=== PATIENT | female | born 1955 | race Caucasian/White ===

== ENCOUNTER → 2017-12-20 | Day surgery (SDC) | payer OTHER ==
[2017-12-19 17:09] VITALS: BMI 19.5
[~2017-12-20] MED LIST: BACITRACIN 15 GM TUBE TOPICAL OINTMENT ONE; BACITRACIN 15 GM TUBE TOPICAL OINTMENT TP ONE; DEXAMETHASONE SOD PHOSPHATE 4 MG/1 ML VIAL ONE; GLYCOPYRROLATE 0.2 MG/1 ML VIAL ONE; KETOROLAC TROMETHAMINE 30 MG/1 ML VIAL ONE; LACTATED RINGERS SOLUTION 1,000 ML IV SCH; LIDOCAINE 1%/EPI 1:100000 (50 ML MULTI DOSE VIAL) INF ONE; MIDAZOLAM HCL 2 MG/2 ML SINGLE DOSE VIAL ONE; NEOSTIGMINE METHYLSULFATE 0.5 MG/ML - 10 ML MDV ONE; NITROGLYCERIN 2% OINTMENT - 1GM PACKET TD ONE; ONDANSETRON 4 MG/2 ML VIAL IVPB PRN; ONDANSETRON 4 MG/2 ML VIAL IVPUSH PRN; PROMETHAZINE HCL 25 MG/1 ML VIAL IVPUSH PRN; ROCURONIUM BROMIDE 50 MG/5 ML VIAL ONE; ceFAZolin SODIUM 1 GM VIAL IVPB ONE; ceFAZolin SODIUM 1 GM VIAL ONE; oxyCODONE HCL 5 MG TABLET PO PRN
--- NOTE | 2017-12-20 21:08 | OP ---
Operative Note - Note: Operative Date: 12/20/17 Pre-Operative Diagnosis: nasal defect Operation: flap nasal reconstruction Post-Operative Diagnosis: Same as Pre-op Surgeon: Jay Barnett Anesthesia: General
--- NOTE | 2017-12-20 22:02 | OP ---
DATE OF OPERATION: 12/20/2017 PROCEDURE: Excision of ulcer on nasal sidewall and ala, reconstruction of nasal sidewall and ala using tubed left nasolabial interpolated flap with dorsal nasal sidewall rotation flap reconstruction of defect. ATTENDING SURGEON: Jacob Blackwell MD SLOTS MANAGER: None. ANESTHESIA: General endotracheal anesthesia with 10 mL of 1% lidocaine with 1:100,000 epinephrine injected into the local tissues. PREOPERATIVE DIAGNOSIS: Defect from basal cell carcinoma on the nose. POSTOPERATIVE DIAGNOSIS: Defect from basal cell carcinoma on the nose. DESCRIPTION OF PROCEDURE: The patient received a gram of Ancef preoperatively. She is counseled on all risks, benefits, and alternatives to the procedure, understands, and agrees to proceed. The patient is awake and aware of the surgical plan and resulting scars. It is noted that the patient had a previous flap reconstruction on her nose, and the type of reconstruction is limited by her previous surgery, and any efforts will be made to cut along the existing scars and not across them preserving blood supply to all mobilized tissues. The patient is placed in supine position. After induction of general anesthesia, 10 mL of 1% lidocaine with 1:100,000 epinephrine is injected. She is marked, prepped, and draped in a standard sterile fashion. SCDs are placed. A time-out is called. The patient, procedure, site, and side are verified. At this point, the existing ulcer on the nose is entirely excised and saucerized. Hemostasis is achieved using Ventura tip cautery. A dorsal nasal rotation flap is then incised along longitudinally the existing scar from her previous bilobe flap incision. This is the scar that was from the donor site closure of the secondary flap. At this point, a back cut is made from the glabella to the medial canthus in order to rotate the flap into the defect. It is mobilized including nasalis muscle. Hemostasis is achieved. The flap is sutured in place. The tip of the flap is excised. A pivot point along the nasal ala in the supraalar groove is excised and closed with a 6-0 nylon suture. Once this flap is inset, its donor site is closed with a 5-0 Vicryl suture within the deep dermis. A 6-0 nylon suture is closed to close the donor site in both running and interrupted fashion, and this dorsal nasal flap is then inset with a running 6-0 nylon suture. The left-sided nasolabial flap is then addressed. This is the portion of the flap that will be required to reconstruct the inferior nasal ala and rim. Incisions are made along the premarked lines of the nasolabial flap. The flap is dissected in a subcutaneous plane superficial to the fascia musculature. This is done with direct vision and spreading very carefully until the flap is mobilized to a point where it can be transferred to the alar defect. The flap is then judicious thinned of fat. It is inset into the alar defect with a series of interrupted 6-0 nylon suture. The excess distal tip of the flap is excised, and this distal portion of the flap is likewise inset with interrupted 6-0 nylon suture. The donor site is then closed with a series of interrupted buried deep dermal 5-0 Vicryl suture after irrigation followed by a running 6-0 nylon suture. The exposed raw surface is dressed with bacitracin and Xeroform. The tips of the flaps are dressed with nitroglycerin paste and Xeroform. Then 4 x 4 gauze and Hypafix tape are applied. The patient is then awoken from anesthesia having tolerated procedure well. It should be noted that the tips of the flaps are pink and viable at the end of the procedure, and nitroglycerin paste is used as a precautionary measure only. JACOB BLACKWELL M.D. [id number]
[2017-12-20 22:53] VITALS: BP 98/46; PULSE 61; TEMP 98.7
== END | disposition home or self-care (01) ==
LOC: JASU-SURG 14:50
PROVIDERS: ATTEND Plastic Surgery
PROC: 0HX1XZZ Transfer Face Skin, External Approach (ICD-10-PCS; principal; 2017-12-20 16:30)
DX: C44.311 Basal cell carcinoma of skin of nose (principal)
CPT/HCPCS: 94760

== ENCOUNTER 2018-01-23 06:37 | Day surgery (SDC) | payer OTHER ==
[2018-01-16 11:03] VITALS: BMI 19.5
[2018-01-23] MEDS ORDERED: SEVOFLURANE 250 ML BTL ONE (07:07)
[2018-01-23] MEDS ORDERED: LIDOCAINE HCL/EPINEPHRINE/PF 20 ML VIAL ONE (07:16)
[2018-01-23] MEDS ORDERED: BACITRACIN 15 GM TUBE TOPICAL OINTMENT ONE (07:16)
[2018-01-23] MEDS ORDERED: PROPOFOL 20 ML ONE ×2 (07:36)
[2018-01-23] MEDS ORDERED: MIDAZOLAM HCL 2 MG/2 ML SINGLE DOSE VIAL ONE (07:36)
[2018-01-23] MEDS ORDERED: SUCCINYLCHOLINE CHLORIDE 200 MG/10 ML VIAL ONE (07:36)
[2018-01-23] MEDS ORDERED: LIDOCAINE 2%/EPINEPHRINE 1:100000 (50 ML MD VIAL) INF ONE ×2 (08:44)
[2018-01-23] MEDS ORDERED: NITROGLYCERIN 2% OINTMENT - 1GM PACKET TD ONE ×2 (09:20→09:40)
[2018-01-23] MEDS ORDERED: ONDANSETRON 4 MG/2 ML VIAL IVPB PRN ×2 (10:00→15:20)
[2018-01-23] MEDS ORDERED: oxyCODONE HCL 5 MG TABLET PO PRN ×4 (10:00→15:12)
[2018-01-23] MEDS ORDERED: LACTATED RINGERS SOLUTION 1,000 ML IV SCH (10:00)
--- NOTE | 2018-01-23 10:07 | OP ---
Operative Note - Note: Operative Date: 01/23/18 Pre-Operative Diagnosis: basal cell carcinoma on nose Operation: division and inset of flap to nose Findings: above Post-Operative Diagnosis: Same as Pre-op Surgeon: Jay Barnett Operative Report Dictated: Yes
[2018-01-23 10:11] VITALS: PULSE 67; TEMP 97.7
[2018-01-23 11:16] VITALS: BP 96/66
[2018-01-23] MEDS ORDERED: ONDANSETRON 4 MG/2 ML VIAL IVPUSH PRN (15:12)
[2018-01-23] MEDS ORDERED: PROMETHAZINE HCL 25 MG/1 ML VIAL IVPUSH PRN (15:12)
--- NOTE | 2018-01-23 18:29 | OP ---
DATE OF OPERATION: 01/23/2018 PROCEDURE: Division inset of left nasolabial flap to nose. PREOPERATIVE DIAGNOSIS: Basal cell carcinoma of the nose with a staged interpolated left nasolabial flap reconstruction. ATTENDING SURGEON: Jacob Blackwell MD WOODWORKING MACHINE OFFBEARER: None. ANESTHESIA: Monitored sedation a total of 13 mL of 2% lidocaine with 1:100,000 epinephrine injected locally into the surrounding tissues. DESCRIPTION OF PROCEDURE: The patient was seen in the holding area, marked the appropriate side, and planned incisions. Patient awake understands the plan, the scars, and the limitations of the operation. She is then given a gram of Ancef. Sequential compression stockings were applied. She was brought to the operating room and placed in a supine position. Position was carefully checked by surgical and anesthesia. She was prepped and draped in a standard surgical fashion. A time-out is called. The patient, procedure, site, sides are verified. At this point, the patient is injected with the aforementioned local anesthetic. The flap is divided near the base of its pedicle. It is thinned and unfurled. Excess fat and scar tissue are removed. The flap is patterned to replace the remainder of the nasal ala, which is able to be seen to be easily well vascularized enough to do this, and there is adequate flap for this purpose. The skin of the residual subunit, which is the left nasal ala, is deskinned leaving deep fibrous tissue for support. The flap is then trimmed and conformed to the defect. It is inset with a single deep 5-0 Vicryl suture. After hemostasis was achieved, the borders of the wound are inset with a series of interrupted 6-0 nylon suture. The flap was pink and viable. Attention was then directed toward the donor site. The base of the pedicle is excised entirely in an elliptical fashion in the subcutaneous plane. The skin is very slightly undermined. Hemostasis was achieved. It was irrigated. Closure was performed with a series of interrupted buried deep dermal 5-0 Vicryl suture followed by a running 6-0 nylon suture. Dressings are applied with a Steri-Strip on the nasolabial donor site, and the flap is dressed with standard nitroglycerin paste, Xeroform, 4 x 4 gauze, and a Hypafix tape. Awoken from anesthesia and transferred to recovery without complication. JACOB BLACKWELL M.D. [id number]
== END 2018-01-23 11:15 | disposition home or self-care (01) ==
LOC: FASU 06:37
PROVIDERS: ATTEND Plastic Surgery
PROC: 0H81XZZ Division of Face Skin, External Approach (ICD-10-PCS; principal; 2018-01-23 08:00)
DX: C44.311 Basal cell carcinoma of skin of nose (principal)